=== PATIENT | female | born 1970 ===

== ENCOUNTER 2019-08-28 10:38 | Emergency (ER) | payer SELFPAY ==
[~2019-08-28] VITALS: Ht 172.7 cm; Wt 104.3 kg
[2019-08-28 10:47] VITALS: BP 142/95
== END 2019-08-28 10:50 | disposition home or self-care (01) ==
LOC: ER 10:38
DX: R20.2 Paresthesia of skin (principal); T40.4X5A Adverse effect of other synthetic narcotics, initial encounter; E03.9 Hypothyroidism, unspecified
CPT/HCPCS: 93005; 99282